=== PATIENT | female | born 1945 | race Caucasian/White ===

== ENCOUNTER → 2017-02-02 | Outpatient (CLI) | payer OTHER ==
--- NOTE | 2017-02-02 16:45 | MAMMOGRAPHY REPORT ---
BILATERAL DIGITAL SCREENING MAMMOGRAM WITH CAD: 02/02/2017 CLINICAL HISTORY: Routine screening. Patient has no complaints. TECHNIQUE: Bilateral CC and MLO views were obtained. Current study was also evaluated with a Comput er Aided Detection (CAD) system. COMPARISON: Comparison is made to exams dated: 01/28/2016 mammogram, 01/22/2015 mammogram, 01/16/2014 m ammogram, 01/10/2013 mammogram, 07/19/2012 mammogram, and 01/12/2012 ultrasound - [facility] enter. BREAST COMPOSITION: The tissue of both breasts is heterogeneously dense, which may obscure small ma sses. FINDINGS: There are stable asymmetries in the inferior left breast, and 3:00 right breast. No new s uspicious mass, architectural distortion or cluster of microcalcifications is seen. IMPRESSION: ACR BI-RADS CATEGORY 1: NEGATIVE There is no mammographic evidence of malignancy. A 1 year screening mammogram is recommended. The p atient will receive written notification of the results. Approximately 10% of breast cancers are not detected with mammography. A negative mammographic repor t should not delay biopsy if a clinically suggestive mass is present. Natalie Rm M.D. ay/:02/02/2017 15:54:16 Internet Developer: Breana Young, [facility] letter sent: Normal 1/2 BI-RADS Code: ACR BI-RADS Category 1: Negative
== END | disposition home or self-care (01) ==
LOC: C.MAMM 09:44
PROVIDERS: ATTEND Family Medicine
DX: Z12.31 Encounter for screening mammogram for malignant neoplasm of breast (principal)

== ENCOUNTER → 2018-02-04 | Outpatient (CLI) | payer OTHER ==
--- NOTE | 2018-02-08 07:49 | MAMMOGRAPHY REPORT ---
BILATERAL DIGITAL SCREENING MAMMOGRAM TOMOSYNTHESIS WITH CAD: 02/04/2018 CLINICAL HISTORY: Routine screening. TECHNIQUE: Breast tomosynthesis in addition to standard 2D mammography was performed. Current study was also evaluated with a Computer Aided Detection (CAD) system. COMPARISON: Comparison is made to exams dated: 02/02/2017 mammogram, 01/28/2016 mammogram, 01/22/2015 m ammogram, 01/16/2014 mammogram, 01/10/2013 mammogram, and 01/08/2012 mammogram - [facility]. BREAST COMPOSITION: The tissue of both breasts is heterogeneously dense, which may obscure small mas ses. FINDINGS: No suspicious masses, calcifications, or areas of architectural distortion are noted in ei ther breast. There has been no significant interval change compared to prior exams. Asymmetry with a ssociated calcifications in the right superior posterior breast on the MLO view is stable compared to multiple prior exams including the 2009 exam. IMPRESSION: ACR BI-RADS CATEGORY 2: BENIGN There is no mammographic evidence of malignancy. A 1 year screening mammogram is recommended. The pa tient will receive written notification of the results. Approximately 10% of breast cancers are not detected with mammography. A negative mammographic report should not delay biopsy if a clinically suggestive mass is present. Lisa Byers M.D. ah/:02/04/2018 14:50:10 Telemarketer Supervisor: Odalys BARRON(R)(M), [facility] letter sent: Normal 1/2 BI-RADS Code: ACR BI-RADS Category 2: Benign
== END | disposition home or self-care (01) ==
LOC: C.MAMM 10:23
PROVIDERS: ATTEND Family Medicine
DX: Z12.31 Encounter for screening mammogram for malignant neoplasm of breast (principal)

== ENCOUNTER 2019-09-25 14:35 | Inpatient (IN) ==
[2019-09-25] MEDS ORDERED: ASPIRIN CHEW 324 MG PO STA (15:01)
[2019-09-25] MEDS ORDERED: ADENOSINE IV SOLN 3 MG/ML 2 ML VIAL IV STA (15:01)
[2019-09-25] MEDS ORDERED: ADENOSINE IV SOLN 3 MG/ML 2 ML VIAL IV ONE (15:02)
[2019-09-25 15:18] LABS: Basophils # (auto) 0.04 K/uL (0-0.2); Basophils % (auto) 0.5 %; Eosinophils # (auto) 0.04 K/uL (0-0.5); Eosinophils % (auto) 0.5 %; Hemoglobin 12.5 g/dL (12.0-16.0); Immature Granulocytes # (auto) 0.01 K/uL (0.00-0.02); Immature Granulocytes % (auto) 0.1 %; Lymphocytes % (auto) 41.5 %; Mean Corpuscular Hemoglobin 28.7 pg (25-34); Mean Corpuscular Hgb Conc 32.1 g/dL (32-36); Mean Corpuscular Volume 89.4 fL (80-100); Mean Platelet Volume 10.2 fL (7.4-10.4); Monocytes # (auto) 0.73 K/uL (0.11-0.59); Monocytes % (auto) 8.4 %; Neutrophils # (auto) 4.25 K/uL (1.4-6.5); Platelet Count 250 K/uL (130-400); RDW Coefficient of Variation 13.3 % (11.5-14.5); RDW Standard Deviation 43.7 fL (36.4-46.3); Red Blood Count 4.36 M/uL (4.2-5.4); White Blood Count 8.67 K/uL (4.8-10.8)
--- NOTE | 2019-09-25 15:29 | XRay Report ---
XR chest 1V portable CLINICAL HISTORY: 74 years-old Female presenting with CP EVAL FOR PNA. TECHNIQUE: PA and lateral views of the chest were obtained. COMPARISON: None. FINDINGS: Atherosclerosis of the aortic arch. Cardiac silhouette mildly enlarged. No focal opacity. No large ef fusion or pneumothorax. Osteopenia suspected. Upper abdomen normal. IMPRESSION: 1. Mild cardiomegaly. No other convincing evidence of acute cardiopulmonary disease. Electronically signed by: Dom Ordoñez M.D. 09/25/2019 3:28 PM
[2019-09-25 15:32] LABS: Potassium 4.1 mmol/L (3.5-5.1)
[2019-09-25 15:45] LABS: Albumin Level 3.7 gm/dl (3.4-5.0); BUN Creatinine Ratio 19.2 (10-20); Bilirubin,Total 0.4 mg/dl (0.2-1); Calcium 9.1 mg/dl (8.5-10.1); Creatinine Clr Calc Pharmacy 35.2 ml/min; Est GFR (African American) 51.2; Est GFR (Non-African American) 44.2; Globulin 3.6 gm/dl (2.5-4.0); Magnesium 2.1 mg/dl (1.8-2.4); Thyroid Stimulating Hormone 2.2 uIu/ml (0.300-4.500); Total Protein 7.3 gm/dl (6.4-8.2)
[2019-09-25 15:59] LABS: INR 1.1 (0.9-1.1); Partial Thromboplastin Time 26.3 Seconds (21.0-31.0); Prothrombin Time 10.8 Seconds (9.0-12.0)
[2019-09-25] MEDS ORDERED: METOPROLOL TARTRATE 1 MG/ML VIAL IV PRN (17:27)
[2019-09-25] MEDS ORDERED: METOPROLOL TARTRATE 25 MG TAB PO STA (17:32)
--- NOTE | 2019-09-25 17:42 | History & Physical Report ---
Date of Service September 25, 2019 Assessment & Plan (1) SVT (supraventricular tachycardia): Chest pain, Palpitations -This is a 74 year old female patient who reports history of palpitations although as per patient, she did not have a definitive diagnosis for causes of these palpitations, denies history of diagnosed arrhythmia, denies any echocardiogram, denies history of myocardial infarction, confirms only history of Hypertension for which she takes lisinopril/HCTZ in the day time and atenolol 50 mg qhs, other medical problem Rhinorrhea for which she takes Nasacort daily but denies recent antihistamine drugs, patient also reported diarrhea with some abdominal pain and had taken loperamide for a day and a half at home, who presents to the emergency room on 09/25/19 after feeling worsening palpitations and new associated symptoms of chest pressure and left arm pain. Patient was f ound to have supraventricular tachycardia per EKG and after adenosine 6 mg IV, the arrhythmia appeared to have resolved and patient no longer feeling palpitation or chest pain/arm pain symptoms despite being still somewhat tachycardic. Patient reported that prior to symptoms: in the AM she had 4 cups of Caffeinated coffee during breakfast, had already taken her lisinopril-HCTZ, then had late lunch at [email or web address] where she had only small taste test of wine but the symptoms began after finishing the meal once she left the restaurant. -no gross electrolyte abnormalities, normal TSH -discussed with [facility] cardiology Dr. Sharma and he agrees with hospitalist plans to hold night time dose of atenolol in favor of metoprolol 25 mg BID -will also have prn IV metoprolol 5 mg q6 hours if heart rate above 110 bpm tentatively in addition -admission to telemetry -echocardiogram ordered -full [facility] affiliated cardiology evaluation pending Hypertension -blood pressures appeared controlled -hold AM dose of lisinopril/HCTZ for now Diarrhea -patient also reported diarrhea with some abdominal pain and had taken loperamide for a day and a half at home -however admission labs does not suggest gross dehydration -patient received 1 liter of IV fluids in the ED -no abdominal pain complaints on exam -monitor bowel movements Rhinorrhea -would avoid nasal sprays or antihistamines for now DVT prophylaxis: heparin subcutaneously Full Code Ezequiel [phone]; [phone] History of Present Illness This is a 74 year old female patient who reports history of palpitations although as per patient, she did not have a definitive diagnosis for causes of these palpitations, denies history of diagnosed arrhythmia, denies any echocardiogram, denies history of myocardial infarction, confirms only history of Hypertension for which she takes lisinopril/HCTZ in the day time and atenolol 50 mg qhs, other medical problem Rhinorrhea for which she takes Nasacort daily but denies recent antihistamine drugs, patient also reported diarrhea with some abdominal pain and had taken loperamide for a day and a half at home, who presents to the emergency room on 09/25/19 after feeling worsening palpitations and new associated symptoms of chest pressure and left arm pain. Patient was found to have supraventricular tachycardia per EKG and after adenosine 6 mg IV, the arrhythmia appeared to have resolved and patient no longer feeling palpitation or chest pain/arm pain symptoms despite being still somewhat tachycardic. Patient reported that prior to symptoms: in the AM she had 4 cups of Caffeinated coffee during breakfast, had already taken her lisinopril-HCTZ, then had late lunch at [email or web address] where she had only small taste test of wine but the symptoms began after finishing the meal once she left the restaurant. Family History: mother with history of quadruple bypass, father with history of Rheumatic heart disease, other family members with history of thyroid disorders Allergy history of codeine which leads to itch, sulfa drugs which leads to rash or itch. denies anaphylactic reactions Primary Care Provider: Julio Maki MD Allergies Allergy/AdvReac Type Severity Reaction Status Date / Time codeine Allergy Mild itchy Verified 09/25/19 15:22 Sulfa (Sulfonamide Allergy Mild Hives Verified 09/25/19 15:22 Antibiotics) Home Medications Home Medications Medication Instructions Recorded Confirmed Type atenolol 50 mg PO QPM 01/31/19 09/25/19 History fexofenadine [Rafaela Allergy] 180 mg PO QAM PRN 01/31/19 09/25/19 History fluticasone propionate [Flonase 2 spray INTRANASAL QAM PRN 01/31/19 09/25/19 History Allergy Relief] lisinopril-hydrochlorothiazide 0.5 tab PO QAM 01/31/19 09/25/19 History Past Med/Surg History Medical History Anemia Cardiac murmur Hypertension Osteoarthritis Surgical History History of bilateral tubal ligation History of cataract surgery 02/17/19: was given 2 mg of IV versed History of colonoscopy History of thyroid surgery benign cyst removed History of tonsillectomy and adenoidectomy History of tooth extraction History of wisdom tooth extraction Family History Other No family history of adverse response to anesthesia Social History Preferred Language: Estonian Communication Ability: Effective Social Services Assistant Required: No Beliefs That Will Affect Care: None Current Living Situation: Spouse and Family Current Living Situation Comment: Lives with and granddaughter and granddaughter's boyfriend Feels Safe at Home: Yes Smoking Status: Never smoker Second Hand Exposure: Yes (father smoked) ; Hx Alcohol Use: No Hx Substance Use: No Review of Systems Review of Systems: All systems reviewed & are unremarkable except as noted in HPI & below Physical Exam Constitutional: comfortable Eyes: PERRL, conjunctivae normal, anicteric sclerae EOM intact bilaterally ENMT: external ear and nose normal, oropharynx normal Neck: normal visual inspection Respiratory: normal respiratory effort, lungs clear to auscultation Cardiovascular: Rate/Rhythm: + tachycardic Gastrointestinal (Abdomen): normal bowel sounds, soft, nontender, no hepatosplenomegaly Musculoskeletal: Head/Neck/Chest: normocephalic and head atraumatic Neurologic: PERRL, EOMI, accommodation nl, no face palsy, no dysarthria CN's II-XI intact bilaterally Psychiatric: A+Ox3, euthymic affect Results & Data Vital Signs (Past 12 Hours) Vital Signs Temp Pulse Resp BP Pulse Ox 09/25/19 16:45 105 H 22 120/79 99 09/25/19 16:31 103 H 21 99 09/25/19 16:30 109 H 21 127/84 99 09/25/19 16:15 115 H 17 135/85 97 09/25/19 16:00 94 H 20 127/75 98 09/25/19 15:45 99 H 20 123/71 100 09/25/19 15:31 85 20 09/25/19 15:30 88 18 138/80 09/25/19 15:15 91 H 17 137/87 97 09/25/19 15:10 136/79 09/25/19 15:08 99 H 20 139/83 09/25/19 15:00 166 H 20 09/25/19 14:58 167 H 24 09/25/19 14:48 172 H 96 09/25/19 14:41 36.7 C 90 16 122/78 97 Code Status & VTE Plan VTE Prophylaxis Plan VTE Prophylaxis will be ordered: Yes
[2019-09-25] MEDS ORDERED: METOPROLOL TARTRATE 50 MG TAB ONE (18:03)
[2019-09-25 18:51] LABS: Partial Thromboplastin Time 27.1 Seconds (21.0-31.0); Prothrombin Time 10.6 Seconds (9.0-12.0)
[2019-09-25 19:01] LABS: Magnesium 1.9 mg/dl (1.8-2.4); Troponin I 0.028 ng/ml (0-0.045)
[2019-09-25] MEDS: HEPARIN SOD 5,000 UNIT/0.5 ML VIAL SQ SCH (20:52)
--- NOTE | 2019-09-25 22:25 | Emergency Department Note ---
Entered by Bi Bartlett acting as a scribe for History of Present Illness General Chief complaint: Arrhythmia/Palpitations Stated complaint: IRREGULAR HEARTBEAT - PAIN IN NECK AND ARM - DIZZY Time Seen by Provider: 09/25/19 14:45 Source: patient Limitations: no limitations History of Present Illness Onset (ago): minute(s) (30) Location: chest Radiation: neck and extremity (upper extremities) Severity: similar to prior episodes Pain Consistency: + constant Maximum Pain Intensity: 2 Quality: + other (pressure) Associated symptoms: + other (abdominal pain, ) The patient is a 74 year old female who presents to the Emergency Room with complaints of constant palpitations starting 30 minutes ago. The patient states she gets palpitations intermittently for several years. She states usually when she gets them it is able to be resolved after sitting down and calming herself. She notes the palpitations usually last a few minutes. The patient states she drank 4 cups of caffeinated coffee today and notes she does not typically drink that much. She states when the palpitations began her arms started to hurt. She states she had neck pain along with the palpitations. She states her arms feel okay right now but her neck feels tight. She states she has chest pressure. She notes she feels out of breath. She states for the past couple days she has been having diarrhea. She notes she had pain in her abdomen with the diarrhea and states she still has some abdominal pain right now. She states she had a sip of wine at her lunch. She states she had a stress test done a few months ago and states it came out fine. She notes her father had coronary problems and rheumatic heart disease as a child. She states she has never been told she has SVT before. Home Medications Home Medications Medication Instructions Recorded Confirmed Type atenolol 50 mg PO QPM 01/31/19 09/25/19 History fexofenadine [Rafaela Allergy] 180 mg PO QAM 01/31/19 09/25/19 History fluticasone propionate [Flonase 2 spray INTRANASAL QAM 01/31/19 09/25/19 History Allergy Relief] lisinopril-hydrochlorothiazide 0.5 tab PO QAM 01/31/19 09/25/19 History Allergies Allergy/AdvReac Type Severity Reaction Status Date / Time codeine Allergy Mild itchy Verified 09/25/19 15:22 Sulfa (Sulfonamide Allergy Mild Hives Verified 09/25/19 15:22 Antibiotics) Past Med/Surg History Medical History Anemia Cardiac murmur Hypertension Osteoarthritis Surgical History History of bilateral tubal ligation History of cataract surgery 02/17/19: was given 2 mg of IV versed History of colonoscopy History of thyroid surgery benign cyst removed History of tonsillectomy and adenoidectomy History of tooth extraction History of wisdom tooth extraction Family History Other No family history of adverse response to anesthesia Social History Preferred Language: Yoruba Communication Ability: Effective Barrel Raiser Helper Required: No Beliefs That Will Affect Care: None Current Living Situation: Spouse Current Living Situation Comment: Lives with and granddaughter and granddaughter's boyfriend Feels Safe at Home: Yes Safety Concerns: Feels Safe At This Time Smoking Status: Never smoker Second Hand Exposure: Yes (father smoked) ; Hx Alcohol Use: No Hx Substance Use: No Review of Systems See HPI for pertinent positives & negatives. and A total of 10 systems reviewed and were otherwise negative Physical Exam Vital Signs Vital Signs - 24 hr 09/25/19 14:41 09/25/19 14:48 09/25/19 14:58 Temperature 36.7 C Temperature Source Oral Pulse Rate 90 172 H 167 H Pulse Rate from SpO2 Sensor Respiratory Rate 16 24 Blood Pressure 122/78 Blood Pressure Mean 92 Pulse Oximetry 97 96 Oxygen Delivery Method Room Air Room Air Sepsis Recent Fever Within 48 Hours No Sepsis New/Unexplained Change in Mental Status No Sepsis Action Taken by Nursing No Action Required 09/25/19 15:00 09/25/19 15:08 09/25/19 15:10 Temperature Temperature Source Pulse Rate 166 H 99 H Pulse Rate from SpO2 Sensor Respiratory Rate 20 20 Blood Pressure 139/83 136/79 Blood Pressure Mean 97 89 Pulse Oximetry Oxygen Delivery Method Sepsis Recent Fever Within 48 Hours Sepsis New/Unexplained Change in Mental Status Sepsis Action Taken by Nursing 09/25/19 15:15 09/25/19 15:30 09/25/19 15:31 Temperature Temperature Source Pulse Rate 91 H 88 85 Pulse Rate from SpO2 Sensor 91 H Respiratory Rate 17 18 20 Blood Pressure 137/87 138/80 Blood Pressure Mean 96 87 Pulse Oximetry 97 Oxygen Delivery Method Sepsis Recent Fever Within 48 Hours Sepsis New/Unexplained Change in Mental Status Sepsis Action Taken by Nursing 09/25/19 15:45 09/25/19 16:00 09/25/19 16:15 Temperature Temperature Source Pulse Rate 99 H 94 H 115 H Pulse Rate from SpO2 Sensor 91 H 93 H 110 H Respiratory Rate 20 20 17 Blood Pressure 123/71 127/75 135/85 Blood Pressure Mean 97 79 108 Pulse Oximetry 100 98 97 Oxygen Delivery Method Room Air Room Air Sepsis Recent Fever Within 48 Hours Sepsis New/Unexplained Change in Mental Status Sepsis Action Taken by Nursing 09/25/19 16:30 09/25/19 16:31 09/25/19 16:45 Temperature Temperature Source Pulse Rate 109 H 103 H 105 H Pulse Rate from SpO2 Sensor 107 H 104 H 108 H Respiratory Rate 21 21 22 Blood Pressure 127/84 120/79 Blood Pressure Mean 115 97 Pulse Oximetry 99 99 99 Oxygen Delivery Method Sepsis Recent Fever Within 48 Hours Sepsis New/Unexplained Change in Mental Status Sepsis Action Taken by Nursing 09/25/19 16:46 09/25/19 17:00 09/25/19 17:01 Temperature Temperature Source Pulse Rate 102 H 107 H 110 H Pulse Rate from SpO2 Sensor 104 H 108 H 110 H Respiratory Rate 24 16 16 Blood Pressure 134/75 Blood Pressure Mean 99 Pulse Oximetry 98 97 96 Oxygen Delivery Method Sepsis Recent Fever Within 48 Hours Sepsis New/Unexplained Change in Mental Status Sepsis Action Taken by Nursing 09/25/19 17:15 09/25/19 17:30 09/25/19 17:31 Temperature Temperature Source Pulse Rate 106 H 111 H 105 H Pulse Rate from SpO2 Sensor 107 H 108 H 104 H Respiratory Rate 21 20 23 Blood Pressure 126/98 140/107 H Blood Pressure Mean 103 113 Pulse Oximetry 98 98 99 Oxygen Delivery Method Sepsis Recent Fever Within 48 Hours Sepsis New/Unexplained Change in Mental Status Sepsis Action Taken by Nursing Constitutional: Vital signs reviewed. Eyes: Pupils are equal round reactive to light. Conjunctiva are noninjected. ENT: Pharynx is clear without erythema or exudate. Mucous membranes are moist. Neck supple without meningeal signs. No goiter. Respiratory: Clear to auscultation bilaterally. Breath sounds are equal bilaterally. Cardiovascular: Tachycardic rate and regular rhythm. HR is 165 BPM. GI: Soft, nondistended and nontender. Bowel sounds are present. Musculoskeletal: No peripheral edema. No lower extremity tenderness. Integumentary: No cyanosis. Neurological: The patient is awake and alert. No focal deficits. Psychiatric: Normal affect. Course Course 1446: The patient was evaluated in room B12B, and a complete history and physical examination were performed. I tried a carotid massage, Valsalva, and modified Valsalva. 1529: Troponin is 0.02. 1537: I reevaluated the patient. She states she no longer has chest discomfort. HR is 99 BPM. 1607: I reevaluated the patient. I spoke with the patient and her about her test results. I recommended hospitalization to rule out ACS. I discussed the limitations of the workup that was done in the ED. I discussed her heart score. She states she is considering if she wants to be admitted or not. 1624: The patient is willing to be admitted. 1635: I discussed the patient's case with Teetee Owens PA-C. Dr. Buddy Owens Hospitalist will evaluate the patient for further management Administered Medications Heparin Sodium (Porcine) (Heparin Sodium (Porcine)) 5,000 units SQ Q8 POLO Stop: 10/25/19 21:59 Last Admin: 09/25/19 20:52 Dose: Not Given Documented by: [id number] Discontinued Medications Adenosine (Adenosine) 6 mg IV NOW STA Stop: 09/25/19 15:02 Last Admin: 09/25/19 15:06 Dose: 6 mg Documented by: [id number] Adenosine (Adenosine) Confirm Administered Dose 6 mg IV .STK-MED ONE Stop: 09/25/19 15:03 Last Admin: 09/25/19 15:26 Dose: Not Given Documented by: [id number] Aspirin (Aspirin) 324 mg PO NOW STA Stop: 09/25/19 15:02 Last Admin: 09/25/19 15:26 Dose: 324 mg Documented by: [id number] Metoprolol Tartrate (Lopressor) Confirm Administered Dose 50 mg .ROUTE .STK-MED ONE Stop: 09/25/19 18:04 Last Admin: 09/25/19 18:07 Dose: 25 mg Documented by: [id number] Critical Care Time Critical Care Time: Yes Total Critical Care Time: 35 I have personally spent approximately 35 minutes of critical care time in the direct management of this patient. This includes bedside care, interpretation of diagnostic studies, and testing, discussion with consultants, patient, and family members, and other required patient management activities. This 35 minutes is in excess of all separately billable procedures. Medical Decision Making Differential Diagnosis Differential Diagnosis includes but is not limited to dysrhythmia, SVT, Atrial Fibrillation with RVR, electrolyte abnormality, unstable angina, and MT. Medical Records Attestation: I reviewed the patient's medical records. I did perform a limited focused review of portions of the patient's old chart on the electronic medical record. The patient has had no recent pertinent visits to this hospital. Home Medications Current Medication List: was personally reviewed by me Laboratory Data Attestation: I reviewed the patient's lab results. Result diagrams: 09/25/19 15:05 09/25/19 15:05 Lab Results 09/25/19 09/25/19 09/25/19 Range/Units 15:05 15:05 15:05 WBC 8.67 (4.8-10.8) K/uL RBC 4.36 (4.2-5.4) M/uL Hgb 12.5 (12.0-16.0) g/dL Hct 39.0 (37-47) % MCV 89.4 (80-100) fL MCH 28.7 (25-34) pg MCHC 32.1 (32-36) g/dL RDW Std Deviation 43.7 (36.4-46.3) fL RDW Coeff of Uriel 13.3 (11.5-14.5) % Plt Count 250 (130-400) K/uL MPV 10.2 (7.4-10.4) fL Immature Gran % (Auto) 0.1 % Neut % (Auto) 49.0 % Lymph % (Auto) 41.5 % [place] % (Auto) 8.4 % Eos % (Auto) 0.5 % Baso % (Auto) 0.5 % Immature Gran # (Auto) 0.01 (0.00-0.02) K/uL Neut # (Auto) 4.25 (1.4-6.5) K/uL Lymph # (Auto) 3.60 H (1.2-3.4) K/uL [place] # (Auto) 0.73 H (0.11-0.59) K/uL Eos # (Auto) 0.04 (0-0.5) K/uL Baso # (Auto) 0.04 (0-0.2) K/uL PT Cancelled INR Cancelled APTT Cancelled PTT Ratio Cancelled Sodium 141 (136-145) mmol/L Potassium 4.1 (3.5-5.1) mmol/L Chloride 103 (98-107) mmol/L Carbon Dioxide 30 (21-32) mmol/L Anion Gap 6.0 (3-11) BUN 23 H (7-18) mg/dl Creatinine 1.20 (0.6-1.2) mg/dl Est Cr Clr Drug Dosing 35.2 ml/min Est GFR ( Amer) 51.2 Est GFR (Non-Af Amer) 44.2 BUN/Creatinine Ratio 19.2 (10-20) Glucose 129 H (70-99) mg/dl Calcium 9.1 (8.5-10.1) mg/dl Magnesium 2.1 (1.8-2.4) mg/dl Total Bilirubin 0.4 (0.2-1) mg/dl AST 40 H (15-37) U/L ALT 33 (12-78) U/L Alkaline Phosphatase 66 (45-117) U/L POC Troponin I (0-0.045) ng/ml Total Protein 7.3 (6.4-8.2) gm/dl Albumin 3.7 (3.4-5.0) gm/dl Globulin 3.6 (2.5-4.0) gm/dl Albumin/Globulin Ratio 1.0 (0.9-2) TSH 2.200 (0.300-4.500) uIu/ml 09/25/19 09/25/19 Range/Units 15:07 15:39 WBC (4.8-10.8) K/uL RBC (4.2-5.4) M/uL Hgb (12.0-16.0) g/dL Hct (37-47) % MCV (80-100) fL MCH (25-34) pg MCHC (32-36) g/dL RDW Std Deviation (36.4-46.3) fL RDW Coeff of Uriel (11.5-14.5) % Plt Count (130-400) K/uL MPV (7.4-10.4) fL Immature Gran % (Auto) % Neut % (Auto) % Lymph % (Auto) % [place] % (Auto) % Eos % (Auto) % Baso % (Auto) % Immature Gran # (Auto) (0.00-0.02) K/uL Neut # (Auto) (1.4-6.5) K/uL Lymph # (Auto) (1.2-3.4) K/uL [place] # (Auto) (0.11-0.59) K/uL Eos # (Auto) (0-0.5) K/uL Baso # (Auto) (0-0.2) K/uL PT 10.8 INR 1.1 APTT 26.3 PTT Ratio 1.0 Sodium (136-145) mmol/L Potassium (3.5-5.1) mmol/L Chloride (98-107) mmol/L Carbon Dioxide (21-32) mmol/L Anion Gap (3-11) BUN (7-18) mg/dl Creatinine (0.6-1.2) mg/dl Est Cr Clr Drug Dosing ml/min Est GFR ( Amer) Est GFR (Non-Af Amer) BUN/Creatinine Ratio (10-20) Glucose (70-99) mg/dl Calcium (8.5-10.1) mg/dl Magnesium (1.8-2.4) mg/dl Total Bilirubin (0.2-1) mg/dl AST (15-37) U/L ALT (12-78) U/L Alkaline Phosphatase (45-117) U/L POC Troponin I < 0.03 (0-0.045) ng/ml Total Protein (6.4-8.2) gm/dl Albumin (3.4-5.0) gm/dl Globulin (2.5-4.0) gm/dl Albumin/Globulin Ratio (0.9-2) TSH (0.300-4.500) uIu/ml Imaging Data Radiologist's Impression: Radiology results as stated below per my review and the radiologist's interpretation: XR chest 1V portable CLINICAL HISTORY: 74 years-old Female presenting with CP EVAL FOR PNA. TECHNIQUE: PA and lateral views of the chest were obtained. COMPARISON: None. FINDINGS: Atherosclerosis of the aortic arch. Cardiac silhouette mildly enlarged. No focal opacity. No large effusion or pneumothorax. Osteopenia suspected. Upper abdomen normal. IMPRESSION: 1. Mild cardiomegaly. No other convincing evidence of acute cardiopulmonary disease. Electronically signed by: Dom Ordoñez M.D. 09/25/2019 3:28 PM ECG Data Attestation: I personally reviewed and interpreted this ECG as follows: Indication: + palpitations Rate (beats per minute): 172 Rhythm: + SVT ECG Intervals/blocks: + Incomplete right bundle branch block and + Normal QRS (QRS is 102 ms) ECG [place]: + Normal ([place] is 45) Additional Comments: Repeat EKG: Normal sinus rhythm. 100 BPM. Low voltage QRS. Incomplete RBBB. No ST elevation. No PVCs. QRS is 86 ms. No significant change from 02/11/19 Blood Pressure Blood Pressure Findings: Elevated blood pressure Blood Pressure Disposition: further management by hospitalist [facility] Cristy I did evaluate the patient as noted above. The patient is presenting with palpitations with chest pressure rating into her arms and neck. She did state that she had a stress test several months ago but was not able to complete it fully due to severe hypertension. IV access was established. The patient was placed on a continuous color television console monitor. Cardiac monitoring: Indication: Severe tachycardia Rate and rhythm: SVT with a rate of 175. After adenosine rate went down to 99. I did order and personally review the patient's 12-lead EKG as described above. The patient has SVT. I did attempt vagal maneuvers on her. I did a modified Valsalva maneuver as well as carotid massage which were unsuccessful. I did order adenosine IV. The patient was placed on pacer pads and connected to the defibrillator. I did discuss risks and benefits of the medication to her. She was given a push dose of adenosine 6 mg IV after which she converted to a normal sinus rhythm with a rate in the 90s. A repeat twelve-lead EKG was obtained. Per my interpretation it shows sinus rhythm with no acute ischemic changes. I did order and personally reviewed the images of the patient's chest x-ray as described above. There is no acute cardiopulmonary process. I did order and review the patient's blood work as noted in the electronic medical record. She is not anemic. Electrolytes are unremarkable. TSH is normal. Troponin is negative. I did discuss the test results with the patient. I did recommend hospitalization for repeat cardiac biomarkers and further evaluation. I did discuss the case with the hospitalist and geriatric case manager. Impression & Plan SVT (supraventricular tachycardia), Acute chest pain Discharge Plan Visit Data *Final* Discharge Date/Time: 09/25/19 18:48 Chief Complaint: Arrhythmia/Palpitations Stated Complaint: IRREGULAR HEARTBEAT - PAIN IN NECK AND ARM - DIZZY ED Provider: Paolo Ferrari Discharge Problem: SVT (supraventricular tachycardia), Acute chest pain Patient Disposition: Admitted As Inpatient Discharge Instructions Interventions: ED Discharge Assessment Last Done: 09/25/19 18:48 The vaibhavibe's documentation has been prepared under my direction and personally reviewed by me in its entirety. I confirm that the note above accurately reflects all work, treatment, procedures, and medical decision making performed by me.
[2019-09-26 00:42] LABS: Basophils # (auto) 0.03 K/uL (0-0.2); Basophils % (auto) 0.4 %; Eosinophils # (auto) 0.07 K/uL (0-0.5); Hematocrit (blood only) 32.8 % (37-47); Hemoglobin 10.5 g/dL (12.0-16.0); Immature Granulocytes # (auto) 0.01 K/uL (0.00-0.02); Immature Granulocytes % (auto) 0.1 %; Lymphocytes # (auto) 2.48 K/uL (1.2-3.4); Lymphocytes % (auto) 36.5 %; Mean Corpuscular Hemoglobin 28.6 pg (25-34); Mean Corpuscular Volume 89.4 fL (80-100); Monocytes # (auto) 0.83 K/uL (0.11-0.59); Monocytes % (auto) 12.2 %; Neutrophils # (auto) 3.38 K/uL (1.4-6.5); Neutrophils % (auto) 49.8 %; Platelet Count 191 K/uL (130-400); RDW Coefficient of Variation 13.3 % (11.5-14.5); RDW Standard Deviation 43.4 fL (36.4-46.3); Red Blood Count 3.67 M/uL (4.2-5.4)
[2019-09-26 01:08] LABS: Albumin Globulin Ratio 1.1 (0.9-2); BUN Creatinine Ratio 26.6 (10-20); Bilirubin,Total 0.3 mg/dl (0.2-1); Calcium 8.5 mg/dl (8.5-10.1); Creatinine Clr Calc Pharmacy 54.3 ml/min; Est GFR (African American) 84.9; Est GFR (Non-African American) 73.2; Globulin 2.7 gm/dl (2.5-4.0); Total Protein 5.7 gm/dl (6.4-8.2); Troponin I 0.077 ng/ml (0-0.045)
[2019-09-26] MEDS: HEPARIN SOD 5,000 UNIT/0.5 ML VIAL SQ SCH ×3 (05:20→20:09)
[2019-09-26 08:12] LABS: INR 1.1 (0.9-1.1); Partial Thromboplastin Time 26.6 Seconds (21.0-31.0); Prothrombin Time 10.9 Seconds (9.0-12.0)
[2019-09-26 08:20] LABS: Albumin Level 3.2 gm/dl (3.4-5.0); BUN Creatinine Ratio 22.1 (10-20); Calcium 9.3 mg/dl (8.5-10.1); Est GFR (African American) 98.2; Est GFR (Non-African American) 84.8; Potassium 3.9 mmol/L (3.5-5.1)
[2019-09-26 08:24] LABS: Albumin Globulin Ratio 1.1 (0.9-2); Bilirubin,Total 0.6 mg/dl (0.2-1); Globulin 2.9 gm/dl (2.5-4.0); Total Protein 6.1 gm/dl (6.4-8.2); Troponin I 0.03 ng/ml (0-0.045)
[2019-09-26] MEDS ORDERED: METOPROLOL TARTRATE 25 MG TAB PO SCH (09:00)
[2019-09-26] MEDS ORDERED: LISINOPRIL/HCTZ 20/12.5MG 1 TAB TAB PO SCH (09:15)
[2019-09-26] MEDS: METOPROLOL TARTRATE 50 MG TAB PO SCH ×2 (10:39→21:11)
--- NOTE | 2019-09-26 11:18 | Cardiology Consultation ---
Date of Consultation September 26, 2019 Assessment & Plan (1) SVT (supraventricular tachycardia): The patient did present in SVT with successful conversion to sinus rhythm with a dose of adenosine. Given her history does sound as though she has been having episodes in the past however this episode was sustained. To that end her atenolol is already been changed to metoprolol and given the fact that she remains tachycardic and hypertensive today I will increase the dose to 50 mg twice daily. Should she remain tachycardic and her blood pressure started to drop consideration could be given to adding Cardizem as well. We also discussed the possibility of an ablation should she fail medical therapy but again for now we will try increasing beta-blockade. The entire pathophysiology and treatment options for SVT were discussed with her at great length, she states that she understands and agrees with the above plan. (2) Acute chest pain: I do not believe this represents an ischemic event and is likely secondary to her severe tachycardia in the setting of SVT. She is also had a stress test as an outpatient recently that was nonischemic. (3) Hypertension: Elevated as above will increase beta-blockade dose at this time. History of Present Illness Reason for Consultation: SVT Requesting Physician: Dr. Goodwin Attending Physician: Vikash Goodwin MD History of Present Illness It was my pleasure to see Mrs. Lynn in consultation today September 26, 2019. She is a very pleasant 74-year-old woman who presented to [facility] emergency department on 09/26/2019 with complaints of palpitations. She was out to eat at a local restaurant when she suddenly felt her heart start to race. She states that it felt like her heart was pounding out of her chest and she developed some chest discomfort with this. She described the discomfort as a pressure sensation that radiated across her precordium. She states that she has had similar episodes in the past however the palpitations were very fleeting in nature unfortunately this episode did not resolve on its own. EMS was summoned and she was found to be in SVT. Upon arrival to the emergency department SVT again was confirmed and she was given 6 mg of IV adenosine with successful conversion to normal sinus rhythm. Currently the patient states that she is feeling well just tired and rundown from the events of last evening. The case was discussed with on-call cardiology does recommend that her atenolol be changed to metoprolol. She is remained in sinus tachycardia in the low 100s. Allergies Allergy/AdvReac Type Severity Reaction Status Date / Time codeine Allergy Mild itchy Verified 09/25/19 15:22 Sulfa (Sulfonamide Allergy Mild Hives Verified 09/25/19 15:22 Antibiotics) Home Medications Home Medications Medication Instructions Recorded Confirmed Type atenolol 50 mg PO QPM 01/31/19 09/25/19 History fexofenadine [Rafaela Allergy] 180 mg PO QAM 01/31/19 09/25/19 History fluticasone propionate [Flonase 2 spray INTRANASAL QAM 01/31/19 09/25/19 History Allergy Relief] lisinopril-hydrochlorothiazide 0.5 tab PO QAM 01/31/19 09/25/19 History Patient History Medical History Anemia Cardiac murmur Hypertension Osteoarthritis Surgical History History of bilateral tubal ligation History of cataract surgery 02/17/19: was given 2 mg of IV versed History of colonoscopy History of thyroid surgery benign cyst removed History of tonsillectomy and adenoidectomy History of tooth extraction History of wisdom tooth extraction Family History Other No family history of adverse response to anesthesia Social History Preferred Language: Romansh Communication Ability: Effective Staff Physical Therapy Assistant Required: No Beliefs That Will Affect Care: None Current Living Situation: Spouse Current Living Situation Comment: Lives with and granddaughter and granddaughter's boyfriend Feels Safe at Home: Yes Safety Concerns: Feels Safe At This Time Smoking Status: Never smoker Second Hand Exposure: Yes (father smoked) ; Hx Alcohol Use: No Hx Substance Use: No Review of Systems Review of Systems: All systems reviewed & are unremarkable except as noted in HPI & below Physical Exam Physical Exam: General: Awake, alert and oriented x 3. No acute distress. HEENT: Normocephalic, atraumatic. Pupils equal, round and reactive to light and accommodation. Extraocular muscles are intact. Anicteric sclera. Moist mucous membranes. Neck: No JVD. No bruit. Cardiovascular: Regular. Positive S-4. Normal S-1 and S-2. No S-3. No murmurs or rubs. Pulmonary: Clear to auscultation B/L. No rales, rhonchi or wheezing Abdomen: Bowel sounds x 4, soft. No rebound, guarding or tenderness. No organomegaly. Extremities: No clubbing, cyanosis or edema. +2 pedal pulses bilaterally. Skin: Warm and dry. Results & Data Vital Signs (Past 12 Hours) Vital Signs Temp Pulse Pulse Resp BP BP Pulse Ox 09/26/19 07:46 36.6 C 89 16 164/93 H 93 09/26/19 07:00 78 09/26/19 03:29 36.5 C 89 18 138/86 96 09/25/19 23:17 36.6 C 69 77 18 156/71 H 96 Laboratory Results Laboratory Results - last 24 hr 09/25/19 09/25/19 09/25/19 15:05 15:05 15:05 WBC 8.67 RBC 4.36 Hgb 12.5 Hct 39.0 MCV 89.4 MCH 28.7 MCHC 32.1 RDW Std Deviation 43.7 RDW Coeff of Uriel 13.3 Plt Count 250 MPV 10.2 Immature Gran % (Auto) 0.1 Neut % (Auto) 49.0 Lymph % (Auto) 41.5 [place] % (Auto) 8.4 Eos % (Auto) 0.5 Baso % (Auto) 0.5 Immature Gran # (Auto) 0.01 Neut # (Auto) 4.25 Lymph # (Auto) 3.60 H [place] # (Auto) 0.73 H Eos # (Auto) 0.04 Baso # (Auto) 0.04 PT Cancelled INR Cancelled APTT Cancelled PTT Ratio Cancelled Sodium 141 Potassium 4.1 Chloride 103 Carbon Dioxide 30 Anion Gap 6.0 BUN 23 H Creatinine 1.20 Est Cr Clr Drug Dosing 35.2 Est GFR ( Amer) 51.2 Est GFR (Non-Af Amer) 44.2 BUN/Creatinine Ratio 19.2 Glucose 129 H Calcium 9.1 Magnesium 2.1 Total Bilirubin 0.4 AST 40 H ALT 33 Alkaline Phosphatase 66 POC Troponin I Troponin I Total Protein 7.3 Albumin 3.7 Globulin 3.6 Albumin/Globulin Ratio 1.0 TSH 2.200 09/25/19 09/25/19 09/25/19 15:07 15:39 18:28 WBC RBC Hgb Hct MCV MCH MCHC RDW Std Deviation RDW Coeff of Uriel Plt Count MPV Immature Gran % (Auto) Neut % (Auto) Lymph % (Auto) [place] % (Auto) Eos % (Auto) Baso % (Auto) Immature Gran # (Auto) Neut # (Auto) Lymph # (Auto) [place] # (Auto) Eos # (Auto) Baso # (Auto) PT 10.8 10.6 INR 1.1 1.0 APTT 26.3 27.1 PTT Ratio 1.0 1.0 Sodium Potassium Chloride Carbon Dioxide Anion Gap BUN Creatinine Est Cr Clr Drug Dosing Est GFR ( Amer) Est GFR (Non-Af Amer) BUN/Creatinine Ratio Glucose Calcium Magnesium Total Bilirubin AST ALT Alkaline Phosphatase POC Troponin I < 0.03 Troponin I Total Protein Albumin Globulin Albumin/Globulin Ratio TSH 09/25/19 09/26/19 09/26/19 18:28 00:16 00:16 WBC 6.80 RBC 3.67 L Hgb 10.5 L Hct 32.8 L MCV 89.4 MCH 28.6 MCHC 32.0 RDW Std Deviation 43.4 RDW Coeff of Uriel 13.3 Plt Count 191 MPV 10.0 Immature Gran % (Auto) 0.1 Neut % (Auto) 49.8 Lymph % (Auto) 36.5 [place] % (Auto) 12.2 Eos % (Auto) 1.0 Baso % (Auto) 0.4 Immature Gran # (Auto) 0.01 Neut # (Auto) 3.38 Lymph # (Auto) 2.48 [place] # (Auto) 0.83 H Eos # (Auto) 0.07 Baso # (Auto) 0.03 PT INR APTT PTT Ratio Sodium 142 Potassium 4.0 Chloride 110 H Carbon Dioxide 28 Anion Gap 4.0 BUN 21 H Creatinine 0.79 D Est Cr Clr Drug Dosing 54.3 Est GFR ( Amer) 84.9 Est GFR (Non-Af Amer) 73.2 BUN/Creatinine Ratio 26.6 H Glucose 94 Calcium 8.5 Magnesium 1.9 Total Bilirubin 0.3 AST 26 ALT 25 Alkaline Phosphatase 48 POC Troponin I Troponin I 0.028 0.077 H* Total Protein 5.7 L D Albumin 3.0 L Globulin 2.7 Albumin/Globulin Ratio 1.1 TSH 09/26/19 09/26/19 07:47 07:51 WBC RBC Hgb Hct MCV MCH MCHC RDW Std Deviation RDW Coeff of Uriel Plt Count MPV Immature Gran % (Auto) Neut % (Auto) Lymph % (Auto) [place] % (Auto) Eos % (Auto) Baso % (Auto) Immature Gran # (Auto) Neut # (Auto) Lymph # (Auto) [place] # (Auto) Eos # (Auto) Baso # (Auto) PT 10.9 INR 1.1 APTT 26.6 PTT Ratio 1.0 Sodium 143 Potassium 3.9 Chloride 110 H Carbon Dioxide 27 Anion Gap 6.0 BUN 16 Creatinine 0.70 Est Cr Clr Drug Dosing 60.0 Est GFR ( Amer) 98.2 Est GFR (Non-Af Amer) 84.8 BUN/Creatinine Ratio 22.1 H Glucose 93 Calcium 9.3 Magnesium Total Bilirubin 0.6 AST 25 ALT 24 Alkaline Phosphatase 53 POC Troponin I Troponin I 0.030 Total Protein 6.1 L Albumin 3.2 L Globulin 2.9 Albumin/Globulin Ratio 1.1 TSH Medications Administered Current Inpatient Medications Heparin Sodium (Porcine) (Heparin Sodium (Porcine)) 5,000 units SQ Q8 [facility] Stop: 10/25/19 21:59 Last Admin: 09/26/19 05:20 Dose: Not Given Documented by: Metoprolol Tartrate (Lopressor) 5 mg IV Q4 PRN PRN Reason: Tachycardia Stop: 10/25/19 19:59 Metoprolol Tartrate (Lopressor) 50 mg PO BID [facility] Stop: 10/26/19 10:29 Last Admin: 09/26/19 10:39 Dose: 50 mg Documented by:
--- NOTE | 2019-09-26 15:33 | Hospitalist Progress Note ---
Date of Service September 26, 2019 Assessment & Plan (1) SVT (supraventricular tachycardia): acute Chest pain, Palpitations -This is a 74 year old female patient who reports history of palpitations although as per patient, she did not have a definitive diagnosis for causes of these palpitations, denies history of diagnosed arrhythmia, denies any echocardiogram, denies history of myocardial infarction, confirms only history of Hypertension for which she takes lisinopril/HCTZ in the day time and atenolol 50 mg qhs, other medical problem Rhinorrhea for which she takes Nasacort daily but denies recent antihistamine drugs, patient also reported diarrhea with some abdominal pain and had taken loperamide for a day and a half at home, who presents to the emergency room on 09/25/19 after feeling worsening palpitations and new associated symptoms of chest pressure and left arm pain. Patient was found to have supraventricular tachycardia per EKG and after adenosine 6 mg IV, the arrhythmia appeared to have resolved and patient no longer feeling palpitation or chest pain/arm pain symptoms despite being still somewhat tachycardic. Patient reported that prior to symptoms: in the AM she had 4 cups of Caffeinated coffee during breakfast, had already taken her lisinopril-HCTZ, then had late lunch at [employer] where she had only small taste test of wine but the symptoms began after finishing the meal once she left the restaurant. -no gross electrolyte abnormalities, normal TSH -discussed with [facility] cardiology Dr. Sharma and he agrees with hospitalist plans to hold night time dose of atenolol in favor of metoprolol 25 mg BID; also prn IV metoprolol 5 mg q6 hours if heart rate above 110 bpm tentatively in addition -admission to telemetry -09/26/19: Patient seen and examined today more than 1 time. Patient does not have further arrhythmia on telemetry monitoring. No chest pain or palpitations. Patient's metoprolol dosing in the hospital of 25 mg BID was increased by cardiology service to 50 mg BID and was recommended by cardiology Dr. Rubio to stay for further cardiac monitoring. Patient was encouraged by hospital medical doctor to ambulate in the hallways. Patent was seen able to ambulate in hallway without acute events or discomforts. -echocardiogram performed on 09/26/19 with results pending elevated troponin -admission troponin negative as 0.028 on 09/25/19 and then there was increase to on second troponin as 0.077 but with no chest pain or symptoms and then third troponin normalized to 0.03 by AM of 09/26/19 -cardiology service that chest pain was secondary to her severe tachycardia in the setting of SVT -echocardiogram performed on 09/26/19 with results pending Hypertension 1/2 tab of of lisinopril 20 mg/HCTZ 12.5 mg was resumed Diarrhea -patient also reported diarrhea with some abdominal pain and had taken loperamide for a day and a half at home -however admission labs does not suggest gross dehydration -patient received 1 liter of IV fluids in the ED -no abdominal pain complaints on exam -monitor bowel movements Rhinorrhea -would avoid nasal sprays or antihistamines for now DVT prophylaxis: heparin subcutaneously Full Code Ezequiel [phone]; [phone] Subjective Patient seen and examined today more than 1 time. Patient does not have further arrhythmia on telemetry monitoring. No chest pain or palpitations. Patient's metoprolol dosing in the hospital of 25 mg BID was increased by cardiology service to 50 mg BID and was recommended by cardiology Dr. Rubio to stay for further cardiac monitoring. Patient was encouraged by hospital medical doctor to ambulate in the hallways. Patent was seen able to ambulate in hallway without acute events or discomforts. No headache. No dizziness. no lightheadedness. no abdominal pain. no vomiting. Review of Systems Review of Systems: All systems reviewed & are unremarkable except as noted in HPI & below Physical Exam Constitutional: comfortable Eyes: PERRL, conjunctivae normal, anicteric sclerae EOM intact bilaterally ENMT: external ear and nose normal, oropharynx normal Neck: normal visual inspection Respiratory: normal respiratory effort, lungs clear to auscultation Cardiovascular: Rate/Rhythm: regular rate and regular rhythm Gastrointestinal (Abdomen): normal bowel sounds, soft, nontender, no hepatosplenomegaly Musculoskeletal: Head/Neck/Chest: normocephalic and head atraumatic Neurologic: PERRL, EOMI, accommodation nl, no face palsy, no dysarthria CN's II-XI intact bilaterally Psychiatric: A+Ox3, euthymic affect Results & Data Vital Signs (Past 12 Hours) Vital Signs Temp Pulse Pulse Resp BP BP Pulse Ox 09/26/19 12:50 37.0 C 84 20 110/73 96 12/16/19 07:46 36.6 C 89 16 164/93 H 93 09/26/19 07:00 78 09/26/19 03:29 36.5 C 89 18 138/86 96
[2019-09-27] MEDS: HEPARIN SOD 5,000 UNIT/0.5 ML VIAL SQ SCH (04:57)
[2019-09-27] MEDS: METOPROLOL TARTRATE 50 MG TAB PO SCH (07:53)
--- NOTE | 2019-09-27 10:22 | Hospitalist Progress Note ---
Date of Service September 27, 2019 Assessment & Plan (1) SVT (supraventricular tachycardia): acute Chest pain, Palpitations -This is a 74 year old female patient who reports history of palpitations although as per patient, she did not have a definitive diagnosis for causes of these palpitations, denies history of diagnosed arrhythmia, denies any echocardiogram, denies history of myocardial infarction, confirms only history of Hypertension for which she takes lisinopril/HCTZ in the day time and atenolol 50 mg qhs, other medical problem Rhinorrhea for which she takes Nasacort daily but denies recent antihistamine drugs, patient also reported diarrhea with some abdominal pain and had taken loperamide for a day and a half at home, who presents to the emergency room on 09/25/19 after feeling worsening palpitations and new associated symptoms of chest pressure and left arm pain. Patient was found to have supraventricular tachycardia per EKG and after adenosine 6 mg IV, the arrhythmia appeared to have resolved and patient no longer feeling palpitation or chest pain/arm pain symptoms despite being still somewhat tachycardic. Patient reported that prior to symptoms: in the AM she had 4 cups of Caffeinated coffee during breakfast, had already taken her lisinopril-HCTZ, then had late lunch at [employer] where she had only small taste test of wine but the symptoms began after finishing the meal once she left the restaurant. -no gross electrolyte abnormalities, normal TSH -discussed with [facility] cardiology Dr. Sharma and he agrees with hospitalist plans to hold night time dose of atenolol in favor of metoprolol 25 mg BID; also prn IV metoprolol 5 mg q6 hours if heart rate above 110 bpm tentatively in addition -admission to telemetry -09/26/19: Patient seen and examined today more than 1 time. Patient does not have further arrhythmia on telemetry monitoring. No chest pain or palpitations. Patient's metoprolol dosing in the hospital of 25 mg BID was increased by cardiology service to 50 mg BID and was recommended by cardiology Dr. Rubio to stay for further cardiac monitoring. Patient was encouraged by hospital medical doctor to ambulate in the hallways. Patent was seen able to ambulate in hallway without acute events or discomforts. -09/27/19: discharge to home Patient is encouraged to limit intake of caffeinated beverages Patient should take metoprolol 50 mg twice a day in place of home dose atenolol Medications sent electronically to [facility], [place] [address] - patient may receive call from cardiology clinic office at for closer cardiology follow up from [facility] Address: [place] [address] Patient has following scheduled follow up 09/30/2019 11:00 AM Provider Julio Maki MD Department [facility] 10/14/2019 10:20 AM Provider Julio Maki MD Department [facility] 12/07/2019 3:00 PM Provider Sotero Rubio Jr., DO Department Cardiology, [facility] 07/09/2020 10:30 AM Provider Jose Sharma MD Department Cardiology, [facility] elevated troponin -admission troponin negative as 0.028 on 09/25/19 and then there was increase to on second troponin as 0.077 but with no chest pain or symptoms and then third troponin normalized to 0.03 by AM of 09/26/19 -cardiology service that chest pain was secondary to her severe tachycardia in the setting of SVT -echocardiogram performed on 09/26/19 with normal ejection fraction and no wall motion abnormalities and only grade I diastolic dysfunction Hypertension 1/2 tab of of lisinopril 20 mg/HCTZ 12.5 mg was resumed on 09/26/19, continue Diarrhea -patient also reported diarrhea with some abdominal pain and had taken loperamide for a day and a half at home -however admission labs does not suggest gross dehydration -patient received 1 liter of IV fluids in the ED -no abdominal pain complaints on exam -Patient may take loperamide every 8 hours as need for loose stool or diarrhea (5 day supply prescribed) Rhinorrhea -no acute rhinorrhea, can continue home flonase or equivalant at home DVT prophylaxis: heparin subcutaneously Full Code Sabine Nieves [phone]; [phone] Discharge Diagnosis: Chest pain and Palpitations from Supraventricular Tachycardia, Hypertension, Diarrhea, elevated troponin Subjective Patient does not have acute events overnight. continues to be feeling well. no chest pains. no palpitations. no dizziness. no lightheadedness. no vomiting. no abdominal pain. no headache Review of Systems Review of Systems: All systems reviewed & are unremarkable except as noted in HPI & below Physical Exam Constitutional: comfortable Eyes: PERRL, conjunctivae normal, anicteric sclerae EOM intact bilaterally ENMT: external ear and nose normal, oropharynx normal Neck: normal visual inspection Respiratory: normal respiratory effort, lungs clear to auscultation Cardiovascular: Rate/Rhythm: regular rate and regular rhythm Gastrointestinal (Abdomen): normal bowel sounds, soft, nontender, no hepatosplenomegaly Musculoskeletal: Head/Neck/Chest: normocephalic and head atraumatic Neurologic: PERRL, EOMI, accommodation nl, no face palsy, no dysarthria CN's II-XI intact bilaterally Psychiatric: A+Ox3, euthymic affect Results & Data Vital Signs (Past 12 Hours) Vital Signs Temp Pulse Pulse Resp BP Pulse Ox 09/27/19 07:15 37.3 C 90 18 153/88 H 96 09/27/19 04:18 36.8 C 84 16 153/79 H 98 09/27/19 00:23 36.7 C 83 18 134/80 97 09/26/19 23:58 76
--- NOTE | 2019-09-27 10:28 | Discharge Summary ---
Date of Service September 27, 2019 Admission HPI Per Admitting Provider This is a 74 year old female patient who reports history of palpitations although as per patient, she did not have a definitive diagnosis for causes of these palpitations, denies history of diagnosed arrhythmia, denies any echocardiogram, denies history of myocardial infarction, confirms only history of Hypertension for which she takes lisinopril/HCTZ in the day time and atenolol 50 mg qhs, other medical problem Rhinorrhea for which she takes Nasacort daily but denies recent antihistamine drugs, patient also reported diarrhea with some abdominal pain and had taken loperamide for a day and a half at home, who presents to the emergency room on 09/25/19 after feeling worsening palpitations and new associated symptoms of chest pressure and left arm pain. Patient was found to have supraventricular tachycardia per EKG and after adenosine 6 mg IV, the arrhythmia appeared to have resolved and patient no longer feeling palpitation or chest pain/arm pain symptoms despite being still somewhat tachycardic. Patient reported that prior to symptoms: in the AM she had 4 cups of Caffeinated coffee during breakfast, had already taken her lisinopril-HCTZ, then had late lunch at [employer] where she had only small taste test of wine but the symptoms began after finishing the meal once she left the restaurant. Family History: mother with history of quadruple bypass, father with history of Rheumatic heart disease, other family members with history of thyroid disorders Allergy history of codeine which leads to itch, sulfa drugs which leads to rash or itch. denies anaphylactic reactions Admission Exam Per Admitting Provider comfortable Eyes: PERRL, conjunctivae normal, anicteric sclerae EOM intact bilaterally ENMT: external ear and nose normal, oropharynx normal Neck: normal visual inspection Respiratory: normal respiratory effort, lungs clear to auscultation Cardiovascular: Rate/Rhythm: + tachycardic Gastrointestinal (Abdomen): normal bowel sounds, soft, nontender, no hepatosplenomegaly Musculoskeletal: Head/Neck/Chest: normocephalic and head atraumatic Neurologic: PERRL, EOMI, accommodation nl, no face palsy, no dysarthria CN's II-XI intact bilaterally Psychiatric: A+Ox3, euthymic affect Principal Diagnosis Chest pain and Palpitations from Supraventricular Tachycardia, Hypertension, Diarrhea, elevated troponin Discharge Exam Constitutional comfortable Eyes PERRL, conjunctivae normal, anicteric sclerae EOM intact bilaterally ENMT external ear and nose normal, oropharynx normal Neck normal visual inspection Respiratory normal respiratory effort, lungs clear to auscultation Cardiovascular Rate/Rhythm: regular rate and regular rhythm Gastrointestinal (Abdomen) normal bowel sounds, soft, nontender, no hepatosplenomegaly Musculoskeletal Head/Neck/Chest: normocephalic and head atraumatic Neurologic PERRL, EOMI, accommodation nl, no face palsy, no dysarthria CN's II-XI intact bilaterally Psychiatric A+Ox3, euthymic affect Discharge Data Allergies Allergy/AdvReac Type Severity Reaction Status Date / Time codeine Allergy Mild itchy Verified 09/25/19 15:22 Sulfa (Sulfonamide Allergy Mild Hives Verified 09/25/19 15:22 Antibiotics) Consultations 09/25/19 16:37 ED Decision to Admit Stat 09/25/19 17:31 Consult Cardiology Routine Hospital Course (1) SVT (supraventricular tachycardia): acute Chest pain, Palpitations -This is a 74 year old female patient who reports history of palpitations although as per patient, she did not have a definitive diagnosis for causes of these palpitations, denies history of diagnosed arrhythmia, denies any echocardiogram, denies history of myocardial infarction, confirms only history of Hypertension for which she takes lisinopril/HCTZ in the day time and atenolol 50 mg qhs, other medical problem Rhinorrhea for which she takes Nasacort daily but denies recent antihistamine drugs, patient also reported diarrhea with some abdominal pain and had taken loperamide for a day and a half at home, who presents to the emergency room on 09/25/19 after feeling worsening palpitations and new associated symptoms of chest pressure and left arm pain. Patient was found to have supraventricular tachycardia per EKG and after adenosine 6 mg IV, the arrhythmia appeared to have resolved and patient no longer feeling palpitation or chest pain/arm pain symptoms despite being still somewhat tachycardic. Patient reported that prior to symptoms: in the AM she had 4 cups of Caffeinated coffee during breakfast, had already taken her lisinopril-HCTZ, then had late lunch at [employer]: [employer] where she had only small taste test of wine but the symptoms began after finishing the meal once she left the restaurant. -no gross electrolyte abnormalities, normal TSH -discussed with [facility] cardiology Dr. Sharma and he agrees with hospitalist plans to hold night time dose of atenolol in favor of metoprolol 25 mg BID; also prn IV metoprolol 5 mg q6 hours if heart rate above 110 bpm tentatively in addition -admission to telemetry -09/26/19: Patient seen and examined today more than 1 time. Patient does not have further arrhythmia on telemetry monitoring. No chest pain or palpitations. Patient's metoprolol dosing in the hospital of 25 mg BID was increased by cardiology service to 50 mg BID and was recommended by cardiology Dr. Rubio to stay for further cardiac monitoring. Patient was encouraged by hospital medical doctor to ambulate in the hallways. Patent was seen able to ambulate in hallway without acute events or discomforts. -09/27/19: discharge to home Patient is encouraged to limit intake of caffeinated beverages Patient should take metoprolol 50 mg twice a day in place of home dose atenolol [facility] [place] [address] - patient may receive call from cardiology clinic office at for closer cardiology follow up from [facility] Address: [address] [place] [address], [place] [address] Patient has following scheduled follow up 09/30/2019 11:00 AM Provider Julio Maki MD Department [facility] 10/14/2019 10:20 AM Provider Julio Maki MD Department [facility] 12/07/2019 3:00 PM Provider Sotero Rubio Jr., Department Cardiology, [facility] 07/09/2020 10:30 AM Provider Jose Sharma MD Department Cardiology, [facility] elevated troponin -admission troponin negative as 0.028 on 09/25/19 and then there was increase to on second troponin as 0.077 but with no chest pain or symptoms and then third troponin normalized to 0.03 by AM of 09/26/19 -cardiology service that chest pain was secondary to her severe tachycardia in the setting of SVT -echocardiogram performed on 09/26/19 with normal ejection fraction and no wall motion abnormalities and only grade I diastolic dysfunction Hypertension 1/2 tab of of lisinopril 20 mg/HCTZ 12.5 mg was resumed on 09/26/19, continue Diarrhea -patient also reported diarrhea with some abdominal pain and had taken loperamide for a day and a half at home -however admission labs does not suggest gross dehydration -patient received 1 liter of IV fluids in the ED -no abdominal pain complaints on exam -Patient may take loperamide every 8 hours as need for loose stool or diarrhea (5 day supply prescribed) Rhinorrhea -no acute rhinorrhea, can continue home flonase or equivalant at home DVT prophylaxis: heparin subcutaneously Full Code Ezequiel [phone]; [phone] Discharge Diagnosis: Chest pain and Palpitations from Supraventricular Tachycardia, Hypertension, Diarrhea, elevated troponin Total Time Total Time Spent Total Time Spent (In Minutes): 40 minutes Total Time Includes: Examination of the Patient, Discharge Planning, Medication Reconciliation and Communication With Other Providers Discharge Plan Discharge Items Patient Disposition: Home - Self-Care Reason For Visit: PALPITATIONS, CHEST PAIN, SUPRAVENTRICULAR TACHYCA Discharge Diagnosis: Chest pain and Palpitations from Supraventricular Tachycardia, Hypertension, Diarrhea, elevated troponins Condition on Discharge: Good Activity: Per Instructions section Non-emergency contact: Primary Care Provider and Immigration Attorney Call non-emergency contact if: you have any medication questions Follow-up/Referrals: Julio Maki MD [Primary Care Provider] - Diet: Heart Healthy Addtl Attending Provider Instructions: Patient is encouraged to limit intake of caffeinated beverages Patient should take metoprolol 50 mg twice a day in place of home dose atenolol Patient may take loperamide every 8 hours as need for loose stool or diarrhea (5 day supply prescribed) [facility] [place] [address] - patient may receive call from cardiology clinic office at for closer cardiology follow up from [facility] Address: [facility] [place] [address] Patient has following scheduled follow up 09/30/2019 11:00 AM Provider Julio Maki MD Department [facility] 10/14/2019 10:20 AM Provider Julio Maki MD Department [facility] 12/07/2019 3:00 PM Provider Sotero Rubio Jr., Department Cardiology, [facility] 07/09/2020 10:30 AM Provider Jose Sharma MD Department Cardiology, [facility] Pending Studies at Discharge: No Stand-Alone Forms: My [facility], Smoking Cessation Medications and DC Order Prescriptions: New loperamide 2 mg tablet 2 mg PO Q8H PRN (Reason: loose stool) 5 Days Qty: 15 RF: 0 metoprolol tartrate 50 mg Tablet 50 mg PO BID 30 Days Qty: 60 RF: 0 Continued lisinopril-hydrochlorothiazide 20-25 mg Tablet 0.5 tab PO QAM RF: 0 fluticasone propionate [Flonase Allergy Relief] 50 mcg/actuation [place],Suspension 2 spray INTRANASAL QAM RF: 0 Discontinued fexofenadine [Rafaela Allergy] 180 mg Tablet 180 mg PO QAM RF: 0 atenolol 50 mg Tablet 50 mg PO QPM RF: 0 Discharge Orders: Discharge Order (Routine); Ordered 09/27/19 Ordered By: Vikash Goodwin Admission Data Admit Date/Time: 09/25/19 17:38 Attending Provider: Vikash Goodwin Admit Provider: Vikash Goodwin Primary Care Provider: Julio Maki Other Providers: Vikash Goodwin ; Jose Sharma
--- NOTE | 2019-09-27 10:44 | Cardiology Progress Note ---
Date of Service September 27, 2019 Assessment & Plan (1) SVT (supraventricular tachycardia): The patient did present in SVT with successful conversion to sinus rhythm with a dose of adenosine. Given her history does sound as though she has been having episodes in the past however this episode was sustained. No recurrence of SVT since initiation of beta-blockade. We will continue her current dose of metoprolol and discharge her home on metoprolol tartrate 50 mg p.o. twice daily. My office will call to arrange follow-up in the next 3 to 4 weeks at our office. She was counseled at great length as to the signs and symptoms of recurrence of SVT and was recommended to either contact my office or return the emergency room with significant symptoms. Patient states that she is in agreement with the above plan. (2) Acute chest pain: I do not believe this represents an ischemic event and is likely secondary to her severe tachycardia in the setting of SVT. She is also had a stress test as an outpatient recently that was nonischemic. (3) Hypertension: Improved. Will follow as an outpatient. Subjective Patient seen and examined, ambulating in halls. No complaints overnight. Denies any recurrences of her palpitations. No issues with initiation of beta- blockade. She also denies experiencing any chest pain, shortness of breath, lightheadedness, dizziness or syncope. Telemetry reviewed: Normal sinus rhythm without recurrence of supraventricular ectopy Review of Systems Review of Systems: All systems reviewed & are unremarkable except as noted in HPI & below Physical Exam Physical Exam: Physical Exam: General: Awake, alert and oriented x 3. No acute distress. HEENT: Normocephalic, atraumatic. Pupils equal, round and reactive to light and accommodation. Extraocular muscles are intact. Anicteric sclera. Moist mucous membranes. Neck: No JVD. No bruit. Cardiovascular: Regular. No S-4. Normal S-1 and S-2. No S-3. No murmurs, rubs or gallops. Pulmonary: Clear to auscultation bilaterally. No rales, rhonchi, or wheezing. Abdomen: Bowel sounds x 4, soft. No rebound, guarding or tenderness. No organomegaly. Extremities: No clubbing, cyanosis or edema. +2 pedal pulses bilaterally. Skin: Warm and dry. Results & Data Vital Signs (Past 12 Hours) Vital Signs Temp Pulse Pulse Resp BP Pulse Ox 09/27/19 07:15 37.3 C 90 18 153/88 H 96 09/27/19 04:18 36.8 C 84 16 153/79 H 98 09/27/19 00:23 36.7 C 83 18 134/80 97 09/26/19 23:58 76
== END 2019-09-27 13:00 | disposition home or self-care (01) | DRG 310 ==
LOC: ED 14:35 → 2S 17:38